=== PATIENT | male | born 1960 | race African-American/Black ===

== ENCOUNTER 2017-01-22 05:58 | Emergency (ER) | payer OTHER ==
[~2017-01-22] VITALS: Ht 182.9 cm; Wt 131.6 kg
[2017-01-22 06:04] VITALS: Ht 182.9 cm; Wt 131.6 kg
[2017-01-22] MEDS ORDERED: NAPR-260 PO (06:48)
[2017-01-22] MEDS ORDERED: METF500T4 PO (06:48)
[2017-01-22 06:56] VITALS: PULSE 98
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
== END 2017-01-22 07:09 | disposition home or self-care (01) ==
LOC: FTE 05:58
DX: Z76.0 Encounter for issue of repeat prescription (principal); M79.672 Pain in left foot; E11.9 Type 2 diabetes mellitus without complications; F17.210 Nicotine dependence, cigarettes, uncomplicated; Z79.84 Long term (current) use of oral hypoglycemic drugs
CPT/HCPCS: 99283